=== PATIENT | female | born 1975 | race Caucasian/White ===

== ENCOUNTER → 2020-04-17 08:07 | Outpatient (CLI) | payer BC, SELFPAY ==
--- NOTE | ~2020-04-17 | XR_ITS ---
EXAMINATION: XR chest 2V DATE: 04/17/2020 08:27 INDICATION: Pruritus, unspecified TECHNIQUE: PA and lateral views of the chest are obtained. COMPARISON: None available FINDINGS: The lungs are free of acute opacities. There is no pleural effusion or pneumothorax. The ca rdiomediastinal silhouette is normal. There is mild thoracic spondylosis. IMPRESSION: 1. No acute cardiopulmonary abnormality. Reviewed, dictated and finalized at location A.
== END ==
PROVIDERS: Visit Provider Specialist
DX: L29.9 Pruritus, unspecified (principal)
CPT/HCPCS: 71046